=== PATIENT | female | born 1970 | race African-American/Black ===

== ENCOUNTER 2019-09-05 08:44 | Emergency (ER) | payer OTHER ==
[2019-09-05 09:17] VITALS: BP 122/77
--- NOTE | 2019-09-05 09:36 | UC ---
Respiratory Complaint HPI - HPI Summary HPI Summary: Pt with cough, congestion -started with URI but settled in chest. cough with yellow-green sputum - progressive x 5 days. No rash. no chills tactile temp. Pt has taken OTC meds with mild improvement Not immunocompromised. Medications as entered in the EMR by medical writer reviewed - History of Current Complaint Chief Complaint: UCGeneralIllness Stated Complaint: SORE THROAT COUGH CHILLS Time Seen by Provider: 09/05/19 09:36 Hx Obtained From: Patient Hx Last Menstrual Period: 3.5 weeks ago Onset/Duration: Gradual Onset, Lasting Days Pain Intensity: 4 - Allergies/Home Medications Allergies/Adverse Reactions: Allergies Allergy/AdvReac Type Severity Reaction Status Date / Time No Known Allergies Allergy Verified 09/05/19 09:17 PMH/Surg Hx/FS Hx/Imm Hx Previously Healthy: Yes - Surgical History Surgical History: Yes Surgery Procedure, Year, and Place: C SECTIONS X'S 2 - Family History Known Family History: Positive: Non-Contributory - Social History Occupation: Employed Full-time Alcohol Use: Rare Substance Use Type: None Smoking Status (MU): Never Smoked Tobacco Review of Systems All Other Systems Reviewed And Are Negative: Yes Constitutional: Positive: Fever - tactile ENT: Positive: Sore Throat, Sinus Congestion Respiratory: Positive: Cough Cardiovascular: Positive: Negative Gastrointestinal: Positive: Negative Physical Exam - Summary Physical Exam Summary: Vital Signs Reviewed: Yes A+Ox3, cough and congested Eyes: Conjunctiva Clear, JENNYFER. 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 Pt with tactile temp and yellow secretion On exam VSS pt with congestion, cough and wheeze will give duoneb, reassess anticipate abx, mdi +/- steroids will reassess - Differential Dx/Diagnosis Provider Diagnosis: Acute bronchitis Discharge ED - Sign-Out/Discharge Documenting (check all that apply): Patient Departure All imaging exams completed and their final reports reviewed: No Studies - Discharge Plan Condition: Stable Disposition: HOME Prescriptions: Albuterol HFA INHALER* [Ventolin HFA Inhaler*] 2 puff INH Q4H PRN #1 mdi PRN Reason: wheeze Amoxicillin/Clavulanate TAB* [Augmentin TAB 500 mg*] 500 mg PO BID #14 tab Benzonatate CAP* [Tessalon 100 MG CAP*] 100 mg PO TID PRN #20 cap PRN Reason: Cough predniSONE [Prednisone 20 MG TAB] 20 mg PO DAILY #5 tablet Patient Education Materials: Acute Bronchitis (ED) Referrals: [facility]YS[facility]IAN REFERRAL [Outside] No Primary Care Phys,NOPCP [Primary Care Provider] - Additional Instructions: -Take antibiotics exactly as prescribed until gone -Use your albuterol puffer - 2 puffs every 4 hours for the next 2 days - then as needed -Stay well hydrated - avoid excess caffeine and all alcohol - eat regular, healthy meals - humidify the air in the room where you sleep - boil water, run a hot steam shower, vaporizer, cups of water by heat register - okay to take over the counter decongestant and cough medication. okay to take cough medication as prescribed. - These infections are spread by secretions - do NOT share eating or drinking utensils - clean items you share with other people such as cell phones, computer mouse, TV remote, computer tablets,etc. Once you have been antibiotics for 2 days, change your toothbrush and your pillowcase. - If your symptoms persist okay to start prednisone as prescribed -Contact your doctor to arrange a follow-up appointment this week. Call your doctor, return here or go to the emergency department with any questions or concerns - Billing Disposition and Condition Condition: STABLE Disposition: Home
[2019-09-05] MEDS ORDERED: Albuterol/Ipratropium NEB.SOL* Albuterol 2.5 MG/Ipratropium 0.5 MG 3 ML INH ONE (09:43)
== END 2019-09-05 10:21 | disposition home or self-care (01) ==
LOC: UCCORT 08:44
DX: J20.9 Acute bronchitis, unspecified (principal)
CPT/HCPCS: 99202; A9270-GY; G0463